=== PATIENT | female | born 1960 | race Caucasian/White ===

== ENCOUNTER → 2017-01-26 | Outpatient (CLI) | payer OTHER ==
--- NOTE | 2017-01-26 15:39 | RAD ---
Left lower extremity arterial ultrasound, 01/26/2017: History: Decreased pulse Duplex evaluation of the major arteries in both lower extremities was performed including grayscale, color-flow and spectral Doppler analysis. The common femoral, superficial femoral and popliteal arteries all demonstrate triphasic Doppler waveforms. No significant velocity acceleration is seen in those regions to suggest high-grade stenosis. No significant focal plaque formation is seen. In the left lower leg the posterior tibial artery is patent and demonstrates a triphasic Doppler waveform. The left peroneal and anterior tibial arteries are patent demonstrating biphasic Doppler waveforms. The dorsalis pedis artery also demonstrates a biphasic Doppler waveform. IMPRESSION: No duplex evidence of significant arterial occlusive disease in the left lower extremity.
== END | disposition home or self-care (01) ==
LOC: US 14:33
PROVIDERS: ATTEND Psychiatry & Neurology Neurology
DX: M21.372 Foot drop, left foot (principal); R09.89 Other specified symptoms and signs involving the circulatory and respiratory systems
CPT/HCPCS: 93926

== ENCOUNTER → 2019-04-12 | Outpatient (CLI) | payer OTHER ==
--- NOTE | 2019-04-12 17:11 | KCIC ---
EXAM: PA, oblique and lateral views of the left wrist DATE: 04/12/2019 3:54 PM INDICATION: Left wrist pain COMPARISON: No Prior FINDINGS: No evidence of acute fracture or dislocation. 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 Mild soft tissue swelling about the left wrist. IMPRESSION: 1. Soft tissue swelling about the left wrist without evidence for acute fracture or dislocation. Electronically signed by: Yandel Evans MD (04/12/2019 5:08 PM) [id number]
== END | disposition home or self-care (01) ==
LOC: KCIC 15:38
PROVIDERS: ATTEND Nurse Practitioner Family
DX: M79.89 Other specified soft tissue disorders (principal); M25.532 Pain in left wrist
CPT/HCPCS: 73110